=== PATIENT | male | born 2000 | race Caucasian/White ===

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

== ENCOUNTER 2023-01-13 02:10 | Outpatient (CLI) | payer MEDICAID, SELFPAY ==
[2023-01-13 16:59] LABS: Abs Immature Grans 0.01 10^3/uL (0.0-0.06); Absolute Basophil Count 0.04 10^3/uL (0.0-0.2); Absolute Lymphocyte Count 2.33 10^3/uL (1.2-3.4); Absolute Monocyte Count 0.52 10^3/uL (0.1-0.8); Absolute Neutrophil Count 3.23 10^3/uL (1.2-6.7); Basophils % 0.6; Eosinophils % 1.6; HCT 42.7 % (40.0-50.0); HGB 14.5 g/dL (13.5-17.5); Immature Grans % 0.2; Lymphocytes % 37.4; MCH 29.3 pg (27.0-33.0); MCV 86 fL (80-95); MPV 8.3 fL (8.0-11.0); Monocytes % 8.3; Neutrophils % 51.9; Platelet Count 250 10^3/uL (130-400); RBC 4.95 10^6/uL (4.36-5.78); RDW 12.4 % (11.8-14.1); WBC 6.23 10^3/uL (4.4-10.8)
[2023-01-13 17:46] LABS: Iron 120 ug/dL (65-175); Total Iron Binding Capacity 408 ug/dL (250-450)
[2023-01-13 18:01] LABS: Ferritin 76 ng/mL (26-388)
[2023-01-16 10:53] LABS: Transferrin 306 mg/dL (201-352)
== END 2023-01-13 02:11 | disposition home or self-care (01) ==
LOC: LBO 02:11
PROVIDERS: PCP Nurse Practitioner Family; Visit Provider Nurse Practitioner Family
DX: R53.83 Other fatigue (principal); R79.89 Other specified abnormal findings of blood chemistry
CPT/HCPCS: 36415; 82728; 83540; 83550; 84443; 84466; 85025

== ENCOUNTER → 2023-09-28 02:07 | Outpatient (CLI) | payer BC, SELFPAY ==
--- NOTE | 2023-09-28 07:00 | DI.NM_ITS ---
APPROVED REPORT Exam: Exercise Treadmill Patient Location: Out-Patient Room/Bed: Stress Nurse: Gail Gao RN Ordering Provider:SONA MORELOS, Contact Number: [phone] BMI: 28.07 Baseline Rhythm: Sinus Arrythmia Indications: Chest Pain Medical History Medical History: Fatigue, OCD Cardiac Medications: None Allergies: None Cardiac Risk Factors: Family history Previous Cardiac Procedures: None Pretest Chest Pain Characteristics: None Exercise History: Physically active (Works construction) Physical Disabilities: None Lung Sounds: LCTA bilaterally Heart Sounds: Irregular, S1/S2 Stress Test Details Test: Exercise stress testing was performed using a Casimiro protocol. Nuclear Acquisition: Rest Tc-99m/Stress Tc-99m 1 day Rest Isotope: Tc-99m Sestamibi. Dose: 10.0 Date: 09/28/2023 Injection Time: 11:10 Stress Isotope: Tc-99m Sestamibi. Dose: 31.0 Date: 09/28/2023 Injection Time: 12:55 HR Resting HR Supine: 69 bpm Max Heart Rate (APMHR): 200.244353 bpm Resting HR Standin bpm Target HR (85% APMHR): 170.710560 bpm Max HR Achieved: 179 bpm % of APMHR: 89.50 Recovery HR: 90 bpm HR response to stress: Normal HR response to stress BP Resting BP Supine: 130/82 mmHg Resting BP Standin/67 mmHg Max BP: 150/58 mmHg Recovery BP: 128/46 mmHg BP response to stress: Normal blood pressure response to stress. ECG Resting ECG: Sinus Arrythmia Ectopy: None Stress ECG: Sinus Tachycardia ST Change: None Maximum ST Deviation: 0 mm Arrhythmia: None Recovery ECG: Sinus Rhythm Recovery ST Change: None Recovery Arrhythmia: None Clinical Reason for Termination: Target HR Achieved Stress Symptoms: None Exercise duration: 9 min52 sec Highest Stage Reached: Stage 4: 4.2 mph at 16% grade. Exercise capacity: 11.5 METs Angina Score: None Velázquez Treadmill Score: 9.0 Rate Pressure Product: 72322 Stress ECG Conclusion 1. Resting electrocardiogram was normal 2. Patient exercised on completed a workload of 11 .5 METS 3. Normal heart rate and blood pressure response to exercise. The patient achieved 90% of predicted heart rate for age 4. There was no electrocardiographic evidence of myocardial ischemia 5. There were no dysrhythmias 6. See MPI report Velázquez Treadmill Score is 9.0 which is Low risk. Stress Test Summary STAGE Time (mins) Speed (mph) Grade (%) HR BP SpO2 SYMPTOMS METS Supine 69 130/82 Standing 84 128/67 1 3 1.7 10 119 150/58 4.5 2 6 2.5 12 143 7 3 9 3.4 14 171 10 4 12 4.2 16 174 13 1 min recovery 150 3 min recovery 114 144/48 6 min recovery 90 128/46 MPI Conclusion Myocardial perfusion is normal. There is no ischemia or evidence prior infarction EF is 46% with normal wall motion Radiologist Interpretation Radiologist Interpretation by: Tomas Ortiz MD Interpretation Date/Time: 09/28/2023 16:12:58
== END ==
PROVIDERS: PCP Nurse Practitioner Family; Visit Provider Nurse Practitioner Family
DX: R07.9 Chest pain, unspecified (principal)
CPT/HCPCS: 78452; 93017

== ENCOUNTER 2024-03-28 16:31 | Emergency (ER) | payer BC, SELFPAY ==
[2024-03-28] VITALS (14 sets, daily range): BP systolic 120–159; BP diastolic 54–89; PULSE 63–92; RESP 10–16; TEMP 37.4; O2SAT 92–100
--- NOTE | 2024-03-28 16:30 | RT.EKG_ITS ---
APPROVED REPORT Exam: Resting ECG Reason for Exam: numbness/ weakness Patient Location: E HR:78 bpm ECG Measurements Heart Rate 78 AXIS WV 149 P 42 QRSd 96 QRS 54 QT 350 T 7 QTc 398 Conclusion Sinus arrhythmia...V-rate 56- 90, variation>10% Normal [place] Nonspecific ST-T changes
--- NOTE | 2024-03-28 17:12 | W.ED.GENAD ---
Discharge Plan Disposition Patient Disposition: Home Condition: Good Discharge Details Clinical Impression: Spell of generalized weakness Primary Care Provider: Marbin Stapleton ED Provider: Shirley Jones Home Meds and New Rx's Prescriptions: No Action buspirone 7.5 mg tablet 7.5 mg PO BID Qty: 60 0RF Patient Comments: new medication, has been forgetting a lot of doses in the past week. Discharge Instructions Additional Instructions: [facility] call [facility] first thing in the morning to schedule follow-up appointment in the next week or so for reevaluation. Your labs today were all reassuring. A Lyme/tick panel and B12 are still pending. These will be available on the portal and your PCP will have access to these as well. Be sure to get plenty of rest, eat regular meals throughout the day, and stay well-hydrated. I encourage you to keep a log of your symptoms to see any aggravating/alleviating factors and timing associated with symptoms. Return to emergency care if you develop new severe weakness, episodes of passing out, severe headache/vision change, fevers associated with symptoms, or if you are very worried and need to be rechecked again immediately Referrals: Marbin Stapleton, FIT MODEL [Primary Care Provider] - HPI General Date/Time Provider Initiated Documentation: 03/28/24 16:44. HPI Narrative: Dianna is a 23 year old male with history of OCD and anxiety presents to emergency dept for evaluation of weakness to R arm and R leg. He reports he first started feeling fatigued and noticed his R pupil was more dilated than the L two weeks ago; this was evaluted by [facility] and no abnormalities found. This comes and goes, sometimes is accompanied by transient blurred vision and intermittent mild occipital headaches which resolve spontaneously (no known triggers). A few days ago Hollis developed mild nausea, no vomiting or change in PO intake. Yesterday noticed slight weakness in R arm (comes and goes), which developed into slight weakness to R leg. Occasional tingling in R upper and lower extremity as well; he thinks this may be positional. Approx 1.5 weeks ago started buspar BID; admits he has not been taking it regularly and notices symptoms are worse when he does not take it. Denies fever/chills, vision change other than intermittant blurring, congestion, sore throat, cough, new chest pain, abdominal pain, change in bowel/bladder function. Drinks approx 4 12 oz twisted teas on weekends only. Denies substance use. No known tick bites. Physical exam reassuring. Max is alert and oriented, in no acute distress. PERRL, EOMs intact. 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 Normal Romberg, gait, bdfhdz-ss-stqdcf, eyxvrp-ty-eibb, Pascual, heel-merino, heel-toe walk, balance. 5/5 muscle strength to upper and lower extremities, two point discrimination intact. No color change to extremities. Easy work of breathing, lung sounds clear bilaterally. Normal heart sounds. Abdomen is soft, nondistended, nontender to palpation. No rashes or lesions noted. DDx includes but is not limited to: Medication reaction, electrolyte imbalance, thyroid dysfunction, Lyme disease, multiple sclerosis. No red flags in history or physical exam concerning for acute intracranial process requiring emergent diagnostic imaging at this time. I independently interpreted the following tests: CBC and CMP reassuring. TSH unremarkable. B12 and tick panel pending. EKG unremarkable, sinus arrhythmia rate 78, no changes consistent with acute ischemia. Normal intervals. Overall workup today reassuring. Reviewed findings with patient. No obvious cause to symptoms at this time, recommend further PCP workup/evaluation with possible neurology referral as needed. Educated on discharge instructions, including red flags indicate need for return to emergency care. Related Data Home Medications ?Medication ?Instructions ?Recorded ?Confirmed buspirone 7.5 mg tablet 7.5 mg PO BID #60 tabs 01/12/24 03/28/24 Previous Rx's ?Medication ?Instructions ?Recorded buspirone 7.5 mg tablet 7.5 mg PO BID #60 tabs 01/12/24 Allergies Allergy/AdvReac Type Severity Reaction Status Date / Time No Known Allergies Allergy Verified 03/28/24 16:40 General Stated Complaint: GenMedical CARLA: 3 Review of Systems Narrative: see HPI Exam Const General: cooperative, healthy appearing, comfortable, no acute distress, well developed and well groomed Nutritional Appearance: average body habitus Orientation: alert and oriented x3 HENMT Head: normal to inspection Ears: hearing grossly normal bilaterally General nose exam: external nose normal Face and sinus: normal facial exam Mouth: oral mucosae normal and moist mucous membranes Eyes General: appearance normal, both eyes and all related structures Periorbital: periorbital findings normal Eyelids: eyelids normal Pupils: PERRL EOM: EOM intact bilaterally Resp Effort & Inspection: normal respiratory effort and able to speak in complete sentences Auscultation: clear to auscultation bilaterally Cardio Rate: regular rate Rhythm: regular rhythm GI Inspection: normal to inspection and non-distended Palpation: soft and nontender Skin General skin exam: no rashes or lesions noted Neuro General: patient alert, patient oriented x3, gait normal, tone normal, moves all extremities, normal light touch, pain and propioception and no focal motor deficits Cranial Nerves: CN's II-XI intact bilaterally, PERRL, EOM intact bilaterally, no nystagmus, facial strength normal, tongue midline, hearing normal, able to rotate head bilaterally and able to elevate shoulders bilaterally Cognition: normal cognition Speech: speech normal Gait: normal gait Motor: muscle tone normal throughout and strength 5/5 throughout Sensory Exam: no sensory deficits noted Coordination: haqdln-li-hnke test normal, rrrl-ra-morw test normal, Romberg test normal, tandem gait normal, Does not sway with eyes open and rapid alternating movement UE normal Extrem General: normal to inspection, full ROM, capillary refill normal, no joint enlargement, no pedal edema and normal gait Course Vital Signs Vital signs: Vital Signs Temperature 37.4 C 03/28/24 16:34 Pulse 75 03/28/24 16:34 Respiratory Rate 16 03/28/24 16:34 Blood Pressure 150/89 H 03/28/24 16:34 Pulse Oximetry 98 03/28/24 16:34 Temperature 37.4 C 03/28/24 16:34 Temperature Source Tympanic 03/28/24 16:34 Pulse 92 H 03/28/24 16:58 Respiratory Rate 12 03/28/24 16:58 Respiratory Effort Normal 03/28/24 16:58 Respiratory Depth Normal 03/28/24 16:58 Respiratory Pattern Normal 03/28/24 16:58 Blood Pressure 159/78 H 03/28/24 16:58 Blood Pressure Position Supine 03/28/24 16:58 Pulse Oximetry 100 03/28/24 16:58 Oxygen Delivery Method Room Air 03/28/24 16:58 Oxygen Flow Rate 0 03/28/24 16:34 Pain Level 2 03/28/24 16:34 Medical Decision Making Quality:SDOH Health Related Social Needs: No Data to Display PFSH All Active Problems (Updated 03/28/24 @ 18:11 by Shirley Dillard) Spell of generalized weakness (Acute) Anxiety (Chronic) Fatigue (Acute) OCD (obsessive compulsive disorder) (Acute) Xerosis of skin (Acute) Medical History (Updated 03/28/24 @ 18:11 by Shirley Dillard) Other specified intestinal helminthiases Roundworm History of ingrown nail Left Great toe, 2+ years ago Surgical History History of circumcision Family History Father Age: 46 No problems noted. Mother Age: 46 No problems noted. Maternal Grandfather Hypertension Social History Smoking/Tobacco Use Status: Never Second Hand Exposure: No Smoking risk assessment performed?: Yes Alcohol Intake: never Drug use: Never Adopted: No Caregiver/Support person: No Foster care: No Household members: family Housing: house Communication Needs: None Education Level: elementary school Details: 9, chooled Do you need help understanding health information?: Rarely Pets and animals: Yes Pets and animals: cat(s) Sexually active: No Do you think of yourself as: straight/heterosexual Current gender identity: male What is your relationship status?: never How often do you talk on the phone with friends or family?: three or more times per week How often do you get together with friends or relatives?: once per week How often do you attend sabianist or buddhism services?: 4 or more times per year Do you belong to any clubs or organized social groups?: no Panel score (0-1 are the most socially isolated patients): 2 What type of physical activity do you participate in: none Kandy/Sabianist: Nondenominational Seatbelt use: always Helmet use: Yes Helmet use: always Drive intox or ride w/intox fast food delivery driver: No Water heater temp set <120 deg: Yes Fire extinguisher in home: Yes Carbon monox detector in home: Yes Firearms in home: No Additional Social history: BW: 7lbs, 40 Weeks
[2024-03-28 17:25] LABS: Abs Immature Grans 0.02 10^3/uL (0.0-0.06); Absolute Basophil Count 0.05 10^3/uL (0.0-0.2); Absolute Lymphocyte Count 2.15 10^3/uL (1.2-3.4); Absolute Monocyte Count 0.66 10^3/uL (0.1-0.8); Absolute Neutrophil Count 3.52 10^3/uL (1.2-6.7); Basophils % 0.8 %; Eosinophils % 1.5 %; HCT 46.8 % (40.0-50.0); Immature Grans % 0.3 %; Lymphocytes % 33.1 %; MCH 30.2 pg (27.0-33.0); MCHC 34.2 % (32.0-36.0); MCV 89 fL (80-95); MPV 8.2 fL (8.0-11.0); Monocytes % 10.2 %; Neutrophils % 54.1 %; Platelet Count 248 10^3/uL (130-400); RBC 5.29 10^6/uL (4.36-5.78); RDW 11.9 % (11.8-14.1); RDW-SD 38.8 fL
[2024-03-28 17:46] LABS: Anion Gap 7.9 mmol/L (3-11); BUN 15 mg/dL (7-18); CO2 30.1 mmol/L (21.0-32.0); CREATININE 0.9 mg/dL (0.70-1.30); Calcium 9.4 mg/dL (8.5-10.1); Chloride 101 mmol/L (98-107); Estimated GFR 124.61 (mL/min/1.73m2); Glucose 112 mg/dL (74-106); Potassium 3.4 mmol/L (3.5-5.1); Sodium 139 mmol/L (136-145); TSH (W/Ref FT4) 1.75 uIU/mL (0.36-3.74)
[2024-03-28 18:26] LABS: Vitamin B12 358 pg/mL (193-986)
[2024-04-01 11:47] LABS: Lyme Ab w Rflx to Lyme Confirm Negative (Negative)
[2024-04-02 08:34] LABS: Anaplasma phagocytophilum Negative (Negative); B. miyamotoi PCR Negative (Negative); Babesia divergens/MO-1 Negative (Negative); Babesia duncani Negative (Negative); Babesia microti Negative (Negative); Ehrlichia chaffeensis Negative (Negative); Ehrlichia ewingii/canis Negative (Negative); Ehrlichia muris eauclairensis Negative (Negative)
== END 2024-03-28 18:23 | disposition home or self-care (01) ==
PROVIDERS: Emergency Provider Nurse Practitioner Family; PCP Nurse Practitioner Family
DX: R53.83 Other fatigue (principal); R11.0 Nausea
CPT/HCPCS: 80048; 81025; 87798; 93005; 99284; 82607; 83735; 84443; 85025; 86618; 93010; 99283

== ENCOUNTER 2024-05-09 02:40 | Outpatient (CLI) | payer BC, SELFPAY ==
--- NOTE | 2024-05-09 07:00 | DI.MRI_ITS ---
Exam(s) MR CERVICAL SPINE WO EXAM: MR CERVICAL SPINE WO CLINICAL HISTORY: R arm and leg weakness; ?MS,r53.1 TECHNIQUE: Multiplanar multisequence MRI of the cervical spine was performed without intravenous con trast. COMPARISON: No exams were available for comparison FINDINGS: BONES: Vertebral body heights are maintained. Intervertebral disc spaces are normal. Alignment is nor mal. Bone marrow signal intensity is within normal limits. The right C6 and C7 facets are fused. CERVICAL CORD: Craniovertebral junction is unremarkable. The cervical cord is normal size and signal intensity. SOFT TISSUES: Unremarkable. C2-3: No disc herniation or bulge is identified. No significant central spinal canal or neural forami nal stenosis. C3-4: No disc herniation or bulge is identified. No significant central spinal canal or neural forami nal stenosis C4-5: No disc herniation or bulge is identified. No significant central spinal canal or neural forami nal stenosis C5-6: No disc herniation or bulge is identified. No significant central spinal canal or neural forami nal stenosis C6-7: No disc herniation or bulge is identified. No significant central spinal canal or neural forami nal stenosis C7-T1: No disc herniation or bulge is identified. No significant central spinal canal or neural ceci inal stenosis IMPRESSION: Unremarkable MRI of the cervical spine. Normal signal in the spinal cord. DATA REPOSITORY:
--- NOTE | 2024-05-09 07:00 | DI.MRI_ITS ---
Exam(s) MR BRAIN WO EXAM: MR BRAIN WO CLINICAL HISTORY: ? MS,rt arm and leg weakness, r53.1 TECHNIQUE: Multiplanar multisequence MRI of the brain was performed. COMPARISON: No exams were available for comparison FINDINGS: VENTRICLES AND EXTRA AXIAL SPACES: Normal in size and morphology for the patient's age. MIDLINE SHIFT: None. CEREBRAL PARENCHYMA: No focus of restricted diffusion to suggest acute infarct. No space-occupying le sabine identified. Normal signal in the brain parenchyma. HEMORRHAGE: None. BRAINSTEM/CEREBELLUM: Normal. CALVARIUM: Normal. VISUALIZED PARANASAL SINUSES/MASTOIDS:Mucous retention cysts or polyps are seen in the maxillary sinu ses bilaterally. COUNCIL OF IZQUIERDO: Normal flow void. PITUITARY GLAND: Unremarkable. OTHER FINDINGS: None. IMPRESSION: Unremarkable MRI of the brain. DATA REPOSITORY:
== END 2024-05-09 03:00 ==
LOC: DI 02:40
PROVIDERS: PCP Nurse Practitioner Family; Visit Provider Psychiatry & Neurology Neurology
DX: R53.1 Weakness (principal)
CPT/HCPCS: 70551; 72141